=== PATIENT | male | born 1985 | race Caucasian/White ===

== ENCOUNTER 2016-06-12 10:39 | Emergency (ER) | payer OTHER ==
--- NOTE | 2016-06-12 10:51 | ED GENERAL ADULT ---
History of Present Illness General Chief Complaint: General Adult Stated Complaint: ELECTRIC SHOCK AT WORK UP LFT ARM Source: patient Exam Limitations: no limitations Vital Signs & Intake/Output Vital Signs & Intake/Output Vital Signs Date Time Temp Pulse Resp B/P Pulse O2 O2 Flow FiO2 Ox Delivery Rate 06/12 1152 98.0 65 16 118/82 100 Room Air 06/12 1125 100 Room Air 06/12 1047 97.6 88 20 138/84 99 Room Air Allergies Coded Allergies: No Known Allergies (06/12/16) Triage Note: Pt presents to ER c/o of electric shock at work to left arm. Pt states he was working on a machine and he got shocked. Pt states his left arm feels like its tingling. Pt also c/o of a headache to back of the head. Pt denies Chest pain. Pt denies LOC Triage Nurses Notes Reviewed? yes Onset: Abrupt Duration: minute(s): (30) Timing: single episode today Injury Environment: work Severity: mild No Modifying Factors: none HPI: This is a 30-year-old female presents to the ER for chief complaint of left hand numbness and tingling after an electric shock at work. He states he was trying to change apart and one of the machines and asked them to power the machine down , however when he went to touch it with his left hand he felt a shock. Mild headache. He did not pass out. No chest pain or shortness of breath. No arm pain. He states he feels a little bit weak. Past History Travel History Traveled to [place] past 21 day No Medical History Any Pertinent Medical History? none Neurological: NONE EENT: NONE Surgical History Surgical History: non-contributory Psychosocial History What is your primary language Sami Tobacco Use: Never used ETOH Use: denies use Illicit Drug Use: denies illicit drug use Family History Hx Contributory? No Review of Systems Review of Systems Constitutional: Denies: chills, fever. EENTM: Reports: no symptoms. Respiratory: Denies: short of breath. Cardiovascular: Denies: chest pain, palpitations, peripheral edema, syncope. GI: Reports: no symptoms. Genitourinary: Reports: no symptoms. Musculoskeletal: Reports: no symptoms. Skin: Reports: no symptoms. Neurological/Psychological: Reports: headache, numbness, tingling. Denies: anxiety, ataxia, confusion. Hematologic/Endocrine: Denies: bruising, bleeding, polyuria, polydipsia. Immunologic/Allergic: Denies: splenectomy. All Other Systems: Reviewed and Negative Physical Exam Physical Exam General Appearance: well developed/nourished, alert, awake, mild distress Head: atraumatic, normal appearance Eyes: Bilateral: normal appearance, PERRL, EOMI. Ears, Nose, Throat: normal pharynx, normal ENT inspection, hearing grossly normal Neck: normal inspection, supple, full range of motion Respiratory: normal breath sounds, chest non-tender, no respiratory distress Cardiovascular: regular rate/rhythm Peripheral Pulses: 2+ radial (R), 2+ radial (L) Gastrointestinal: normal bowel sounds, soft, non-tender Extremities: normal inspection, normal capillary refill, normal range of motion, no edema, no signs of thermal burn Neurologic/Psych: no motor/sensory deficits, awake, alert, oriented x 3 Skin: intact, normal color, cyanosis Core Measures ACS in differential dx? No CVA/TIA Diagnosis: No Severe Sepsis Present: No Septic Shock Present: No Progress Differential Diagnoses I considered the following diagnoses in my evaluation of the patient: [ELECTRIC SHOCK, RHABDOMYOLYSIS, ARRHYTHMIA] Plan of Care: Orders Procedure Date/time Status TROPONIN LEVEL 06/12 1049 Complete COMPREHENSIVE METABOLIC PANEL 06/12 1049 Complete CREATINE PHOSPHOKINASE 06/12 1049 Complete CBC WITHOUT DIFFERENTIAL 06/12 1049 Complete EKG 06/12 1049 Active Laboratory Tests 06/12/16 1059: Anion Gap 16, Estimated GFR > 60, BUN/Creatinine Ratio 19.0, Glucose 100 H, Calcium 9.6, Total Bilirubin 1.2, AST 24, ALT 45, Alkaline Phosphatase 68, Creatine Kinase 57, Troponin I < 0.01, Total Protein 7.6, Albumin 4.7, Globulin 2.9, Albumin/Globulin Ratio 1.6, CBC w Diff NO MAN DIFF REQ, RBC 5.19, MCV 84.2, MCH 28.9, RDW 12.8, MPV 7.0 L, Gran % 59.8, Lymphocytes % 29.5, Monocytes % 7.9 , Eosinophils % 2.4, Basophils % 0.4, Absolute Granulocytes 5.0, Absolute Lymphocytes 2.5, Absolute Monocytes 0.7 H, Absolute Eosinophils 0.2, Absolute Basophils 0, PUBS MCHC 34.3 Initial ED EKG: NSR Departure Departure Time of Disposition: 1155 Disposition: HOME OR SELF CARE Condition: Stable Clinical Impression Primary Impression: Electric shock Additional Instructions: Take Motrin or Tylenol as advised. Follow-up with occupational medicine. Return to the ER for any changing or worsening symptoms. Departure Forms: Customer Survey General Discharge Information Critical Care Note Critical Care Note Critical Care Time: non-applicable
[2016-06-12 11:08] LABS: ABSOLUTE BASOPHIL COUNT 0 /CUMM (0.0-0.2); ABSOLUTE EOSINOPHIL COUNT 0.2 /CUMM (0.0-0.7); ABSOLUTE LYMPH COUNT 2.5 /CUMM (1.2-3.4); ABSOLUTE MONOCYTE COUNT 0.7 /CUMM (0.10-0.60); BASOPHIL % 0.4 % (0.0-2.0); EOSINOPHIL % 2.4 % (0-5); GRANULOCYTE % 59.8 % (42.2-75.2); HEMATOCRIT 43.7 % (42-52); MEAN CORPUSCULAR HGB 28.9 PG (27.0-31.0); MEAN CORPUSCULAR HGB CONC 34.3 G/DL (33.0-37.0); MEAN CORPUSCULAR VOLUME 84.2 FL (80.0-94.0); PLATELET COUNT 267 /CUMM (130-400); RBC DISTRIBUTION WIDTH 12.8 % (11.5-14.5); RED BLOOD CELL CT 5.19 /CUMM (4.70-6.10); WHITE BLOOD CELL COUNT 8.4 /CUMM (4.8-10.8)
[2016-06-12 11:52] VITALS: BP 118/82
== END 2016-06-12 12:05 ==
LOC: ERH 10:39
PROVIDERS: Emergency Medicine
DX: T75.4XXA Electrocution, initial encounter (principal); W86.8XXA Exposure to other electric current, initial encounter
CPT/HCPCS: 93005; 93010